=== PATIENT | female | born 1965 | race Two or more races ===

== ENCOUNTER 2017-03-26 10:15 | Emergency (ER) | payer BC ==
[2017-03-26] MEDS ORDERED: NORMAL SALINE 1000 ML 1,000 ML IV ONE (10:42)
[2017-03-26] MEDS ORDERED: FAMOTIDINE INJ/PF 20 MG/2 ML SDV IV ONE (10:42)
--- NOTE | 2017-03-26 10:43 | ER Document Report ---
ED General - General Chief Complaint: Abdominal Pain Stated Complaint: VOMITING Time Seen by Provider: 03/26/17 10:38 TRAVEL OUTSIDE OF THE [place] IN LAST 30 DAYS: No - HPI Notes: Seen approximately 2-3 days ago for paresthesias elevated blood sugars neck pain at [facility]. Started on Flexeril patient now complains of burning stomach pain. - Related Data Allergies/Adverse Reactions: iodine [Iodine] Allergy (Severe, Verified 06/07/15 20:48) Anaphylaxis Shellfish * [Shellfish] Allergy (Severe, Verified 06/07/15 20:48) Anaphylaxis hydromorphone [From Dilaudid] Allergy (Verified 03/26/17 10:21) morphine Allergy (Verified 03/26/17 10:21) Past Medical History - Social History Family History: Reviewed & Not Pertinent - Past Medical History Cardiac Medical History: Denies: Hx Coronary Artery Disease, Hx Heart Attack, Hx Hypertension Pulmonary Medical History: Denies: Hx Asthma, Hx Bronchitis, Hx COPD, Hx Pneumonia Neurological Medical History: Denies: Hx Cerebrovascular Accident, Hx Seizures Endocrine Medical History: Reports: Hx Diabetes Mellitus Type 2 Renal/ Medical History: Reports: Hx Kidney Stones - STAGHORN x 2. Denies: Hx Peritoneal Dialysis Musculoskeltal Medical History: Reports Hx Arthritis Past Surgical History: Reports: Hx Cardiac Surgery - ablation, Hx Section - x4, Hx Cholecystectomy, Hx Kidney (Renal Surgery) - Lt side x 2. Denies: Hx Hysterectomy - Immunizations Hx Diphtheria, Pertussis, Tetanus Vaccination: Yes Review of Systems - Review of Systems Gastrointestinal: Abdominal pain Physical Exam - Vital signs Vitals: Temp Pulse Resp BP Pulse Ox 98.5 F 94 22 H 154/101 H 99 03/26/17 10:19 03/26/17 10:19 03/26/17 10:19 03/26/17 10:19 03/26/17 10:19 - Cardiovascular Rhythm: Regular Heart sounds: Normal auscultation Course - Vital Signs Vital signs: Temp Pulse Resp BP Pulse Ox 98.5 F 94 22 H 154/101 H 99 03/26/17 10:19 03/26/17 10:19 03/26/17 10:19 03/26/17 10:19 03/26/17 10:19
[2017-03-26] MEDS ORDERED: ONDANSETRON HCL INJ/PF 4 MG/2 ML SDV IV ONE (10:44)
--- NOTE | 2017-03-26 10:44 | ER Document Report ---
ED Medical Screen (RME) - General Chief Complaint: Abdominal Pain Stated Complaint: VOMITING Time Seen by Provider: 03/26/17 10:38 TRAVEL OUTSIDE OF THE [place] IN LAST 30 DAYS: No - HPI Notes: 03/26/17 10:44 Burning stomach pain nausea vomiting left flank pain. Seen 2 days ago at [facility]. - Related Data Allergies/Adverse Reactions: iodine [Iodine] Allergy (Severe, Verified 06/07/15 20:48) Anaphylaxis Shellfish * [Shellfish] Allergy (Severe, Verified 06/07/15 20:48) Anaphylaxis hydromorphone [From Dilaudid] Allergy (Verified 03/26/17 10:21) morphine Allergy (Verified 03/26/17 10:21) Past Medical History - Social History Chew tobacco use (# tins/day): No Frequency of alcohol use: Occasional Drug Abuse: None - Past Medical History Cardiac Medical History: Denies: Hx Coronary Artery Disease, Hx Heart Attack, Hx Hypertension Pulmonary Medical History: Denies: Hx Asthma, Hx Bronchitis, Hx COPD, Hx Pneumonia Neurological Medical History: Denies: Hx Cerebrovascular Accident, Hx Seizures Endocrine Medical History: Reports: Hx Diabetes Mellitus Type 2 Renal/ Medical History: Reports: Hx Kidney Stones - STAGHORN x 2. Denies: Hx Peritoneal Dialysis Musculoskeltal Medical History: Reports Hx Arthritis Past Surgical History: Reports: Hx Cardiac Surgery - ablation, Hx Section - x4, Hx Cholecystectomy, Hx Kidney (Renal Surgery) - Lt side x 2. Denies: Hx Hysterectomy - Immunizations Hx Diphtheria, Pertussis, Tetanus Vaccination: Yes Review of Systems - Review of Systems Gastrointestinal: Abdominal pain, Nausea, Vomiting -: Yes All other systems reviewed and negative Physical Exam - Vital signs Vitals: Temp Pulse Resp BP Pulse Ox 98.5 F 94 22 H 154/101 H 99 03/26/17 10:19 03/26/17 10:19 03/26/17 10:03/26/17 10:03/26/17 10:19 - Respiratory Respiratory status: No respiratory distress Chest status: Nontender Breath sounds: Normal Chest palpation: Normal Course - Vital Signs Vital signs: Temp Pulse Resp BP Pulse Ox 98.5 F 94 22 H 154/101 H 99 03/26/17 10:19 03/26/17 10:19 03/26/17 10:19 03/26/17 10:19 03/26/17 10:19
[2017-03-26 11:18] LABS: ABSOLUTE BASOPHILS # (AUTO) 0.1 10^3/uL (0.0-0.2); ABSOLUTE EOSINOPHILS # (AUTO) 0.2 10^3/uL (0.0-0.6); ABSOLUTE LYMPHOCYTES (AUTO) 2.6 10^3/uL (0.5-4.7); ABSOLUTE MONOCYTES (AUTO) 0.7 10^3/uL (0.1-1.4); BASOPHILS % (AUTO) 0.6 % (0-2); EOSINOPHILS % (AUTO) 1.6 % (0-6); HEMATOCRIT 44.1 % (36.0-47.0); HEMOGLOBIN 14.7 g/dL (12.0-15.5); LYMPHOCYTES % (AUTO) 24.8 % (13-45); MEAN CORPUSCULAR HEMOGLOBIN 25.3 pg (27.0-33.4); MEAN CORPUSCULAR HGB CONC 33.4 g/dL (32.0-36.0); MEAN CORPUSCULAR VOLUME 76 fl (80-97); MONOCYTES % (AUTO) 6.7 % (3-13); RED BLOOD COUNT 5.81 10^6/uL (3.72-5.28); RED CELL DISTRIBUTION WIDTH 13.6 % (11.5-14.0); SEGMENTED NEUTROPHILS % (AUTO) 66.3 % (42-78); WHITE BLOOD COUNT 10.6 10^3/uL (4.0-10.5)
--- NOTE | 2017-03-26 11:55 | RADIOLOGY REPORT (SQ) ---
EXAM DESCRIPTION: CT LTD RENAL STONE PROTOCOL ON COMPLETED DATE/TIME: 03/26/2017 11:20 am REASON FOR STUDY: left flank COMPARISON: 01/30/2009, 09/07/2012, 08/25/2014 CT abdomen and pelvis without contrast TECHNIQUE: CT scan of the abdomen and pelvis performed without intravenous or oral contrast. Images reviewed with lung, soft tissue, and bone windows. Reconstructed coronal and sagittal MPR images revi ewed. All images stored on PACS. All CT scanners at this facility use dose modulation, iterative reconstruction, and/or weight based d osing when appropriate to reduce radiation dose to as low as reasonably achievable (ALARA). [facility]: Dose Right [facility]: CareDose [facility]: Dose Right [facility]: Teradose 4D [facility]: Smart MaxLinear RADIATION DOSE: Up-to-date CT equipment and radiation dose reduction techniques were employed. CTDIv ol: 10.5 mGy. DLP: 539 mGy-cm.mGy. LIMITATIONS: None. FINDINGS: LOWER CHEST: No significant findings. No nodules or infiltrates. NON-CONTRASTED LIVER, SPLEEN, ADRENALS: Evaluation limited by lack of IV contrast. No identified sign ificant masses. PANCREAS: No masses. No peripancreatic inflammatory changes. GALLBLADDER: Surgically absent RIGHT KIDNEY AND URETER: No suspicious masses. Assessment limited by lack of IV contrast. No signif icant calcifications. No hydronephrosis or hydroureter. LEFT KIDNEY AND URETER: No suspicious masses. Assessment limited by lack of IV contrast. There are tiny left mid and lower pole intrarenal nonobstructive stones. No left ureteral calculi. No hydron ephrosis or hydroureter. AORTA AND RETROPERITONEUM: No aneurysm. No retroperitoneal masses or adenopathy. BOWEL AND PERITONEAL CAVITY: No obvious masses or inflammatory changes. No free fluid. APPENDIX: Normal. PELVIS, BLADDER, AND ABDOMINAL WALL:No abnormal masses. No free fluid. Bladder normal. Normal size f emale pelvic organs BONES: Vacuum phenomenon bilateral SI joints. Lower lumbar and facet arthropathy. OTHER: No other significant finding. IMPRESSION: Left-sided intrarenal nonobstructive calculi. COMMENT: Quality ID # [id number]: Final reports with documentation of one or more dose reduction techniques (e.g., Automated exposure control, adjustment of the mA and/or kV according to patient size, use of iterative reconstruction technique) TECHNICAL DOCUMENTATION: JOB ID: [id number]- All Rights Reserved
[2017-03-26 12:04] LABS: APPEARANCE,URINE CLOUDY; BILIRUBIN,URINE NEGATIVE (NEGATIVE); GLUCOSE, URINE >=500 mg/dL (NEGATIVE); KETONES,URINE NEGATIVE (NEGATIVE); LEUKOCYTE ESTERASE,URINE SMALL (NEGATIVE); NITRITE,URINE NEGATIVE (NEGATIVE); PROTEIN,URINE NEGATIVE (NEGATIVE); URINE SPECIFIC GRAVITY 1.023; UROBILINOGEN,URINE NEGATIVE mg/dL (<2.0)
[2017-03-26 12:16] LABS: ALANINE AMINOTRANSFERASE 40 U/L (9-52); ALBUMIN 4.3 g/dL (3.5-5.0); ALKALINE PHOSPHATASE 92 U/L (38-126); ANION GAP 16 (5-19); ASPARTATE AMINO TRANSFERASE 18 U/L (14-36); BILIRUBIN,DIRECT 0.4 mg/dL (0.0-0.4); BILIRUBIN,TOTAL 1.2 mg/dL (0.2-1.3); BLOOD UREA NITROGEN 30 mg/dL (7-20); CALCIUM 9.8 mg/dL (8.4-10.2); CARBON DIOXIDE 25 mmol/L (22-30); CHLORIDE 100 mmol/L (98-107); GLUCOSE 288 mg/dL (75-110); LIPASE 382.4 U/L (23-300); POTASSIUM 4.2 mmol/L (3.6-5.0); SODIUM 140.6 mmol/L (137-145)
--- NOTE | 2017-03-26 12:51 | ER Document Report ---
ED General - General Chief Complaint: Abdominal Pain Stated Complaint: VOMITING Time Seen by Provider: 03/26/17 10:38 Mode of Arrival: Ambulatory Information source: Patient Notes: 51-year-old female presents with complaints of epigastric abdominal pain similar to her previous pains. Patient denies any fevers or chills admits to mild nausea with it. Patient notes that she was switched on her diabetes medication by her primary care physician 4 days ago and since then her blood sugar has been elevated and her vision has been blurry. Patient denies any fevers or chills patient notes that she is also had chronic neck pain which she has been told is secondary to arthritis in second cervical region. Patient denies any chest pain TRAVEL OUTSIDE OF THE [place] IN LAST 30 DAYS: No - HPI Onset: Other Onset/Duration: Intermittent Quality of pain: Sharp Severity: Mild Pain Level: 1 Associated symptoms: Nausea, Other Exacerbated by: Denies Relieved by: Denies Similar symptoms previously: Yes Recently seen / treated by doctor: Yes - Related Data Allergies/Adverse Reactions: iodine [Iodine] Allergy (Severe, Verified 06/07/15 20:48) Anaphylaxis Shellfish * [Shellfish] Allergy (Severe, Verified 06/07/15 20:48) Anaphylaxis hydromorphone [From Dilaudid] Allergy (Verified 03/26/17 10:21) morphine Allergy (Verified 03/26/17 10:21) Past Medical History - Social History Smoking Status: Current Every Day Smoker Cigarette use (# per day): Yes Chew tobacco use (# tins/day): No Smoking Education Provided: No Frequency of alcohol use: Occasional Drug Abuse: None Family History: Reviewed & Not Pertinent - Past Medical History Cardiac Medical History: Denies: Hx Coronary Artery Disease, Hx Heart Attack, Hx Hypertension Pulmonary Medical History: Denies: Hx Asthma, Hx Bronchitis, Hx COPD, Hx Pneumonia Neurological Medical History: Denies: Hx Cerebrovascular Accident, Hx Seizures Endocrine Medical History: Reports: Hx Diabetes Mellitus Type 2 Renal/ Medical History: Reports: Hx Kidney Stones - STAGHORN x 2. Denies: Hx Peritoneal Dialysis Musculoskeltal Medical History: Reports Hx Arthritis Past Surgical History: Reports: Hx Cardiac Surgery - ablation, Hx Section - x4, Hx Cholecystectomy, Hx Kidney (Renal Surgery) - Lt side x 2. Denies: Hx Hysterectomy - Immunizations Hx Diphtheria, Pertussis, Tetanus Vaccination: Yes Review of Systems - Review of Systems Notes: REVIEW OF SYSTEMS: CONSTITUTIONAL : Denies fever, chills, or sweats. Denies recent illness. EENT: Denies eye, ear, throat, or mouth pain or symptoms. Denies nasal or sinus congestion or discharge. Denies throat, tongue, or mouth swelling or difficulty swallowing. CARDIOVASCULAR: Denies chest pain. Denies palpitations or racing or irregular heart beat. Denies ankle edema. RESPIRATORY: Denies cough, cold, or chest congestion. Denies shortness of breath, difficulty breathing, or wheezing. GASTROINTESTINAL: Admits to epigastric pain GENITOURINARY: Denies difficulty urinating, painful urination, burning, frequency, blood in urine, or discharge. FEMALE GENITOURINARY: Denies vaginal bleeding, heavy or abnormal periods, irregular periods. Denies vaginal discharge or odor. MUSCULOSKELETAL: Admits to cervical neck pain SKIN: Denies rash, lesions or sores. HEMATOLOGIC : Denies easy bruising or bleeding. LYMPHATIC: Denies swollen, enlarged glands. NEUROLOGICAL: Denies confusion or altered mental status. Denies passing out or loss of consciousness. Denies dizziness or lightheadedness. Denies headache. Denies weakness or paralysis or loss of use of either side. Denies problems with gait or speech. Denies sensory loss, numbness, or tingling. Denies seizures. PSYCHIATRIC: Denies anxiety or stress. Denies depression, suicidal ideation, or homicidal ideation. ALL OTHER SYSTEMS REVIEWED AND NEGATIVE. PHYSICAL EXAMINATION: GENERAL: Well-appearing, well-nourished and in no acute distress. HEAD: Atraumatic, normocephalic. EYES: Pupils equal round and reactive to light, extraocular movements intact, conjunctiva are normal. ENT: Nares patent, oropharynx clear without exudates. Moist mucous membranes. NECK: Normal range of motion, supple without lymphadenopathy LUNGS: Breath sounds clear to auscultation bilaterally and equal. No wheezes rales or rhonchi. HEART: Regular rate and rhythm without murmurs ABDOMEN: Soft, minimally tender in epigastric region no rebound or guarding Female : deferred Musculoskeletal: Normal range of motion, no pitting or edema. No cyanosis. NEUROLOGICAL: Cranial nerves grossly intact. Normal speech, normal gait. Normal sensory, motor exams PSYCH: Normal mood, normal affect. SKIN: Warm, Dry, normal turgor, no rashes or lesions noted. Dictation was performed using imedo voice recognition software Physical Exam - Vital signs Vitals: Temp Pulse Resp BP Pulse Ox 98.5 F 94 22 H 154/101 H 99 03/26/17 10:19 03/26/17 10:19 03/26/17 10:03/26/17 10:03/26/17 10:19 Course - Re-evaluation Re-evalutation: 03/26/17 13:48 Lab work noted no significant abnormality mild elevation of lipase was noted however the patient does not appear to have any signs of pancreatitis otherwise. She was treated for her gastric reflux as well as her neuralgia. Patient has been given very strict return precautions regarding follow-up and return and to speak with her primary care physician regarding her medications which she believes is causing all the symptoms Patient blood sugar is noted to be elevated today therefore I hope to change medication will get it under control After performing a Medical Screening Examination, I estimate there is LOW risk for ACUTE APPENDICITIS, BOWEL OBSTRUCTION, ACUTE CHOLECYSTITIS, PERFORATED DIVERTICULITIS, INCARCERATED HERNIA, PANCREATITIS, PELVIC INFLAMMATORY DISEASE, PERFORATED ULCER, ECTOPIC , or TUBO-OVARIAN ABSCESS, thus I consider the discharge disposition reasonable. Also, there is no evidence or peritonitis , sepsis, or toxicity. I have reevaluated this patient multiple times and no significant life threatening changes are noted. The patient and I have discussed the diagnosis and risks, and we agree with discharging home with close follow-up with the understanding that symptoms and presentations can change. We also discussed returning to the Emergency Department immediately if new or worsening symptoms occur. We have discussed the symptoms which are most concerning (e.g., bloody stool, fever, changing or worsening pain, vomiting) that necessitate immediate return. - Vital Signs Vital signs: Temp Pulse Resp BP Pulse Ox 98.5 F 94 18 97/81 L 97 03/26/17 13:01 03/26/17 10:03/26/17 13:01 03/26/17 13:01 03/26/17 13:01 - Laboratory Result Diagrams: 03/26/17 11:00 03/26/17 11:55 Laboratory results interpreted by me: 03/26/17 03/26/17 03/26/17 11:00 11:00 11:55 WBC 10.6 H RBC 5.81 H MCV 76 L MCH 25.3 L BUN 30 H Creatinine 1.40 H Est GFR ( Amer) 48 L Est GFR (Non-Af Amer) 39 L Glucose 288 H Lipase 382.4 H Urine Glucose (UA) >=500 H Ur Leukocyte Esterase SMALL H - Diagnostic Test Radiology reviewed: Image reviewed, Reports reviewed Discharge - Discharge Clinical Impression: Epigastric abdominal pain, Neck pain, Hyperglycemia Condition: Stable Disposition: HOME, SELF-CARE Instructions: Abdominal Pain ([facility]) Prescriptions: Famotidine [Pepcid 20 mg Tablet] 20 mg PO DAILY #30 tablet Gabapentin 300 mg PO BID #30 capsule Forms: Return to Work Referrals: NISH STOKES MD [ACTIVE STAFF] - Follow up as needed
[2017-03-26 13:14] VITALS: BP 97/81
== END 2017-03-26 13:10 | disposition home or self-care (01) ==
LOC: ER 10:15
DX: E11.65 Type 2 diabetes mellitus with hyperglycemia (principal); R10.13 Epigastric pain; M54.2 Cervicalgia; R11.10 Vomiting, unspecified; F17.210 Nicotine dependence, cigarettes, uncomplicated; Z88.6 Allergy status to analgesic agent; Z91.013 Allergy to seafood; Z90.49 Acquired absence of other specified parts of digestive tract
CPT/HCPCS: 99284; 96361; 96374; 96375; 36415; 83690; 85025; 80053; 81001; 83605; 76380; J2405; J7030; S0028

== ENCOUNTER → 2017-05-28 | Outpatient (CLI) | payer BC ==
--- NOTE | 2017-05-28 09:51 | RADIOLOGY REPORT (SQ) ---
EXAM DESCRIPTION: CERV SP 3 VIEW OR LESS COMPLETED DATE/TIME: 05/28/2017 7:53 am REASON FOR STUDY: CERVICAL RADICULAR PAIN M54.12 RADICULOPATHY, CERVICAL REGION COMPARISON: None. NUMBER OF VIEWS: Two views TECHNIQUE: Lateral flexion and lateral extension cervical spine radiographic images LIMITATIONS: None. FINDINGS: MINERALIZATION: Normal. ALIGNMENT: Anatomic. No instability on flexion/extension VERTEBRAE: Vertebral bodies of normal height. DISCS: There is moderate disc space loss of height with mild anterior osteophyte formation at C5-6. Mild disc space loss of height with anterior osteophyte formation at C6-7 HARDWARE: None in the spine. SOFT TISSUES: No masses or calcifications. Lung apices clear. OTHER: No other significant finding. IMPRESSION: Degenerative disc changes at C5-6 and C6-7. No instability on flexion/extension TECHNICAL DOCUMENTATION: JOB ID: [id number] [email or web address]- All Rights Reserved
== END ==
LOC: RAD 07:18
PROVIDERS: ATTEND Nurse Practitioner
DX: M54.12 Radiculopathy, cervical region (principal); M47.892 Other spondylosis, cervical region
CPT/HCPCS: 72040

== ENCOUNTER → 2017-07-07 | Outpatient (CLI) | payer BC ==
--- NOTE | 2017-07-07 08:09 | RADIOLOGY REPORT (SQ) ---
EXAM DESCRIPTION: CERV SP 3 VIEW OR LESS COMPLETED DATE/TIME: 07/07/2017 7:26 am REASON FOR STUDY: CERVICAL RADICULAR PAIN M54.12 RADICULOPATHY, CERVICAL REGION COMPARISON: 05/28/2017. NUMBER OF VIEWS: Three views. TECHNIQUE: Neutral lateral, flexion, and extension lateral views. LIMITATIONS: None. FINDINGS: MINERALIZATION: Normal. ALIGNMENT: Minimal degenerative anterolisthesis of C4 on C5. VERTEBRAE: Cervical spondylosis at C4-7. DISCS: Disc space narrowing prominent at C5-7 and to a lesser degree at C4-5. HARDWARE: None in the spine. SOFT TISSUES: No masses or calcifications. Lung apices clear. OTHER: No other significant finding. IMPRESSION: Multilevel cervical spondylosis with degenerative disc disease prominent at C5-7. TECHNICAL DOCUMENTATION: JOB ID: [id number] [employer]- All Rights Reserved
--- NOTE | 2017-07-07 08:54 | RADIOLOGY REPORT (SQ) ---
EXAM DESCRIPTION: MRI CERVICAL SPINE WITHOUT; EMPLOYEE COMPLETED DATE/TIME: 07/07/2017 7:54 am; 07/07/2017 7:26 am REASON FOR STUDY: CERVICAL RADICULAR PAIN M54.12 RADICULOPATHY, CERVICAL REGION COMPARISON: None. TECHNIQUE: Sagittal and Axial imaging includes T1, T2, STIR and gradient echo sequences. LIMITATIONS: Patient motion. FINDINGS: ALIGNMENT: Reversal of lordotic curve. VERTEBRAE: Intact. BONE MARROW: Normal. No marrow replacement or reactive changes. DISCS: Desiccation multiple levels. HARDWARE: None in the spine. CORD AND BASE OF BRAIN: Normal in size and signal intensity. SOFT TISSUES: No soft tissue masses. C1-C2: No significant spinal stenosis. C2-C3: No significant spinal stenosis or exit foraminal stenosis. C3-C4: Mild spinal stenosis due to disc osteophyte complex. Mild right and moderate left neural fora candy narrowing. C4-C5: Mild -moderate spinal stenosis due to disc osteophyte complex. Moderate neural foraminal narr owing bilaterally. C5-C6: Moderate spinal stenosis. Severe neural foraminal narrowing bilaterally. C6-C7: Mild spinal stenosis. Moderate right and severe left neural foraminal narrowing. C7-T1: No significant spinal stenosis or exit foraminal stenosis. UPPER THORACIC: Incompletely imaged. No significant spinal stenosis or exit foraminal stenosis. OTHER: No other significant finding. IMPRESSION: Spinal stenosis at multiple levels, most severe at C5- 6. Neural foraminal stenosis. TECHNICAL DOCUMENTATION: JOB ID: [id number] [employer]- All Rights Reserved
== END ==
LOC: RAD 07:04
PROVIDERS: ATTEND Nurse Practitioner
DX: M54.12 Radiculopathy, cervical region (principal)
CPT/HCPCS: 72040; 72141

== ENCOUNTER 2017-11-29 04:33 | Emergency (ER) | payer BC ==
[2017-11-29 04:40] VITALS: BP 162/80
--- NOTE | 2017-11-29 04:55 | ER Document Report ---
HPI - HPI Patient complains to provider of: Left shoulder pain Pain Level: 4 Context: Patient is a 52-year-old female comes emergency department for chief complaint of left shoulder pain. She states that on she accidentally injured her arm by swinging it around quickly, she denies any heavy lifting maneuver or impact injury. She states she had a sharp pain and since then has had soreness , pain with movement, and this has been getting worse instead of better. She is taking diclofenac and Flexeril. She denies history of the same. She denies any other complaints. - REPRODUCTIVE Reproductive: DENIES: : Past Medical History - General Information source: Patient - Social History Smoking Status: Never Smoker Frequency of alcohol use: None Drug Abuse: None Lives with: Family Family History: Reviewed & Not Pertinent - Past Medical History Cardiac Medical History: Denies: Hx Coronary Artery Disease, Hx Heart Attack, Hx Hypertension Pulmonary Medical History: Denies: Hx Asthma, Hx Bronchitis, Hx COPD, Hx Pneumonia Neurological Medical History: Denies: Hx Cerebrovascular Accident, Hx Seizures Endocrine Medical History: Reports: Hx Diabetes Mellitus Type 2 Renal/ Medical History: Reports: Hx Kidney Stones - STAGHORN x 2. Denies: Hx Peritoneal Dialysis Musculoskeltal Medical History: Reports Hx Arthritis Past Surgical History: Reports: Hx Cardiac Surgery - ablation, Hx Section - x4, Hx Cholecystectomy, Hx Kidney (Renal Surgery) - Lt side x 2. Denies: Hx Hysterectomy - Immunizations Hx Diphtheria, Pertussis, Tetanus Vaccination: Yes Vertical Provider Document - CONSTITUTIONAL General Appearance: WD/WN, No Apparent Distress - INFECTION CONTROL TRAVEL OUTSIDE OF THE [place] IN LAST 30 DAYS: No - HEENT HEENT: Atraumatic, Normocephalic - NECK Neck: Normal Inspection - Normal range of motion the neck, no midline tenderness - RESPIRATORY Respiratory: Breath Sounds Normal, No Respiratory Distress - CARDIOVASCULAR Cardiovascular: Regular Rate, Regular Rhythm - GI/ABDOMEN Gastrointestinal: Abdomen Soft, Abdomen Non-Tender - BACK Back: negative: Normal Inspection - Tenderness over the left trapezius distribution, no midline tenderness of the spine, no saddle anesthesia, normal back exam otherwise - MUSCULOSKELETAL/EXTREMETIES Musculoskeletal/Extremeties: Tender - Tender over the left shoulder posteriorly at the rotator cuff, no supraspinatus tenderness. Pain with range of motion although she can still perform full range of motion. Negative empty cup test and Speed's test. Full range of motion at the elbow, wrist, normal distal neurovascular exam, normal strength. - NEURO Level of Consciousness: Awake, Alert, Appropriate Motor/Sensory: No Motor Deficit, No Sensory Deficit Course - Re-evaluation Re-evalutation: X-ray imaging showing arthritis, no acute findings. Examination consistent with rotator cuff injury. Patient states she cannot sleep because of the pain, she has what appears to be muscle spasm over the left trapezius as well. Patient already on anti-inflammatories, declines sling, need to work release, discussed with patient, will provide with diazepam for the muscle spasm, she Josh has good orthopedic follow-up and sees Dr. Bonilla. Discussed recommendations, follow-up, return precautions, patient states understanding and agreement. - Vital Signs Vital signs: Temp Pulse Resp BP Pulse Ox 98.0 F 79 20 162/80 H 98 11/29/17 04:38 11/29/17 04:38 11/29/17 04:38 11/29/17 04:38 11/29/17 04:38 Discharge - Discharge Clinical Impression: Left shoulder pain Qualifiers: Chronicity: acute Qualified Code(s): M25.512 - Pain in left shoulder Condition: Stable Disposition: HOME, SELF-CARE Additional Instructions: The x-ray shows some arthritis but no other concerning findings. Your examination is consistent with a partial tear of your rotator cuff. This sometimes heals with time, sometimes needs orthopedic management. Take medication as prescribed, continue diclofenac, apply heat to the shoulder, perform gentle range of motion, and rest the shoulder. Avoid lifting, twisting , if possible until symptoms resolve. Return for any concerning symptoms including severe swelling or pain. Prescriptions: Diazepam [Valium 5 mg Tablet] 1 - 2 tab PO TID PRN #20 tablet PRN Reason: Forms: Return to Work Referrals: DOROTEO BONILLA MD [ACTIVE STAFF] - Follow up in 1 week
--- NOTE | 2017-11-29 05:21 | RADIOLOGY REPORT (SQ) ---
EXAM DESCRIPTION: XR SHOULDER 2 OR MORE VIEWS COMPLETED DATE/TME: 11/29/2017 04:53 CLINICAL HISTORY: 52 years Female, injury, pain COMPARISON: None. Findings: Os acromiale. Atherosclerosis. Bones, joints, and soft tissues of the XR LEFT SHOULDER 3 VIEWS appear otherwise intact. IMPRESSION: No acute findings.
[2017-11-29] MEDS ORDERED: DIAZEPAM INJ 10 MG/2 ML DISP.SYRIN IM ONE (05:23)
== END 2017-11-29 05:39 | disposition home or self-care (01) ==
LOC: ER 04:33
DX: M25.512 Pain in left shoulder (principal); X50.3XXA Overexertion from repetitive movements, initial encounter; Z79.899 Other long term (current) drug therapy; E11.9 Type 2 diabetes mellitus without complications
CPT/HCPCS: 99283; 96372; 73030; J3360

== ENCOUNTER → 2017-12-16 | Outpatient (CLI) | payer BC ==
--- NOTE | 2017-12-17 08:26 | RADIOLOGY REPORT (SQ) ---
EXAM DESCRIPTION: MRI LT UPPER JOINT WITHOUT COMPLETED DATE/TIME: 12/16/2017 6:46 pm REASON FOR STUDY: M25.512 PAIN IN LEFT SHOULDER M25.512 PAIN IN LEFT SHOULDER COMPARISON: Plain radiograph TECHNIQUE: Left shoulder images acquired and stored on PACS. Multiplanar imaging to include fat sens itive sequences such as T1, water sensitive sequences such as FST2/STIR, cartilage sensitive sequence s such as FSPD/gradient-echo sequences. LIMITATIONS: None. FINDINGS: BONE MARROW AND CORTEX: No worrisome bone lesions or marrow replacement. No occult fractur es. JOINT OR BURSAL EFFUSION: No significant joint or bursal fluid. No suggestion of loose bodies. GLENO-HUMERAL ARTICULATION: Normal articulation. No subluxation. No cystic change. No osteophytes or cartilage loss. ACROMION AND AC JOINT: Os acromiale. Type 2 acromion. No down-sloping or distal spur. Sub-acromial space maintained. No significant AC joint arthropathy. ROTATOR CUFF AND INTERVAL: Thickening and heterogeneous signal of the distal supraspinatus. There is a small rim rent tear at the insertion. Focal fluid collection in the infraspinatus without tear. No rotator interval tear. No rotator interval thickening to suggest adhesive capsulitis. LABRUM AND BICEPS LABRAL COMPLEX: Thickening of the biceps anchor and proximal tendon indicating te ndinopathy. No abbi tear. The labrum is intact. REMAINDER OF LABRUM AND IGHL : No gross tear or paralabral cyst formation. Labral evaluation is less than optimal without joint distention. No thickening of IGHL to suggest adhesive capsulitis. PERIARTICULAR AND ADJACENT SOFT TISSUES: No masses or abnormal nodes. OTHER: No other significant finding. IMPRESSION: Tendinopathy and small rim rent tear of the supraspinatus. No full-thickness tear. Small fluid collection in the infraspinatus. Possibly posttraumatic. TECHNICAL DOCUMENTATION: JOB ID: [id number] [employer]- All Rights Reserved Reading location - IP/workstation name: [id number]
== END ==
LOC: RAD 18:54
PROVIDERS: ATTEND Orthopaedic Surgery
DX: M25.512 Pain in left shoulder (principal); M75.112 Incomplete rotator cuff tear or rupture of left shoulder, not specified as traumatic

== ENCOUNTER 2018-07-15 21:40 | Emergency (ER) | payer SELFPAY ==
[2018-07-15 21:57] VITALS: BP 137/83
[2018-07-15] MEDS ORDERED: ASPIRIN 81 MG TABLET, CHEWABLE PO ONE (22:25)
--- NOTE | 2018-07-15 22:27 | ER Document Report ---
ED Medical Screen (RME) - General Chief Complaint: High Blood Sugar Stated Complaint: BLOOD SUGAR PROBLEMS Time Seen by Provider: 07/15/18 22:20 Primary Care Provider: DOROTEO BONILLA MD [Primary Care Provider] - Follow up as needed Notes: 52-year-old -Malag[place] female with multiple medical comorbidities comes in tonight with multiple complaints. Chiefly patient is having some pain in her chest. She has a history of PA and CABG in the past. Apparently she has not had the money to afford a lot of her medications. Feels like her blood sugars also high. She is tearful about multiple stressors in her life and has also been having suicidal ideation with a plan to ingest a whole bunch of pills. I have treated and performed a rapid initial assessment of this patient. A comprehensive ED assessment and evaluation of the patient, analysis of test results and completion of medical decision making process will be conducted by additional ED providers. PHYSICAL EXAMINATION: GENERAL: Tearful, no acute distress LUNGS: Breath sounds clear to auscultation bilaterally and equal. No wheezes rales or rhonchi. HEART: Regular rate and rhythm without murmurs, rubs, gallops. ABDOMEN: Soft, nondistended abdomen. No guarding, no rebound. Normal bowel sounds present. No CVA tenderness bilaterally. + mild epigastric tenderness (cannot elicit thorough abd exam w/o table, however). Extremities: No cyanosis, clubbing, or edema b/l. NEUROLOGICAL: Normal speech, normal gait. PSYCH: Depressed TRAVEL OUTSIDE OF THE [place] IN LAST 30 DAYS: No - Related Data Allergies/Adverse Reactions: iodine [Iodine] Allergy (Severe, Verified 06/07/15 20:48) Anaphylaxis Shellfish * [Shellfish] Allergy (Severe, Verified 06/07/15 20:48) Anaphylaxis hydromorphone [From Dilaudid] Allergy (Verified 03/26/17 10:21) morphine Allergy (Verified 03/26/17 10:21) Past Medical History - Past Medical History Cardiac Medical History: Denies: Hx Coronary Artery Disease, Hx Heart Attack, Hx Hypertension Pulmonary Medical History: Denies: Hx Asthma, Hx Bronchitis, Hx COPD, Hx Pneumonia Neurological Medical History: Denies: Hx Cerebrovascular Accident, Hx Seizures Endocrine Medical History: Reports: Hx Diabetes Mellitus Type 2 Renal/ Medical History: Reports: Hx Kidney Stones - STAGHORN x 2. Denies: Hx Peritoneal Dialysis Musculoskeltal Medical History: Reports Hx Arthritis Past Surgical History: Reports: Hx Cardiac Surgery - ablation, Hx Section - x4, Hx Cholecystectomy, Hx Kidney (Renal Surgery) - Lt side x 2. Denies: Hx Hysterectomy - Immunizations Hx Diphtheria, Pertussis, Tetanus Vaccination: Yes Physical Exam - Vital signs Vitals: Temp Pulse Resp BP Pulse Ox 99.2 F 99 16 137/83 H 98 07/15/18 21:55 07/15/18 21:55 07/15/18 21:55 07/15/18 21:55 07/15/18 21:55 Course - Vital Signs Vital signs: Temp Pulse Resp BP Pulse Ox 99.2 F 99 16 137/83 H 98 07/15/18 21:55 07/15/18 21:55 07/15/18 21:55 07/15/18 21:55 07/15/18 21:55 Doctor's Discharge - Discharge Referrals: DOROTEO BONILLA MD [Primary Care Provider] - Follow up as needed
--- NOTE | 2018-07-15 22:46 | RADIOLOGY REPORT (SQ) ---
EXAM DESCRIPTION: XR CHEST 2 VIEWS COMPLETED DATE/TME: 07/15/2018 22:23 CLINICAL HISTORY: 52 years, Female, CHEST PAIN COMPARISON: 06/07/2015 chest NUMBER OF VIEWS: 2 TECHNIQUE: Frontal and lateral views of the chest LIMITATIONS: None. FINDINGS: Heart size is normal. Median sternotomy wires. Lungs are clear. No pneumothorax IMPRESSION: No acute cardiopulmonary process copyright 2010 [employer]- All Rights Reserved
== END 2018-07-16 07:05 | disposition left against medical advice (07) ==
LOC: ER 21:40
DX: E11.65 Type 2 diabetes mellitus with hyperglycemia (principal); Z87.442 Personal history of urinary calculi; Z90.49 Acquired absence of other specified parts of digestive tract; Z88.6 Allergy status to analgesic agent; Z91.013 Allergy to seafood; I25.2 Old myocardial infarction; Z95.1 Presence of aortocoronary bypass graft
CPT/HCPCS: 71046; 99281

== ENCOUNTER 2018-08-19 21:27 | Emergency (ER) | payer OTHER ==
[2018-08-19] MEDS ORDERED: NORMAL SALINE 1000 ML 1,000 ML IV ONE (21:30)
--- NOTE | 2018-08-19 21:41 | ER Document Report ---
ED Medical Screen (RME) - General Chief Complaint: High Blood Sugar Stated Complaint: BLOOD SUGAR ISSUE Time Seen by Provider: 08/19/18 21:39 Primary Care Provider: DOROTEO BONILLA MD [Primary Care Provider] - Follow up as needed Mode of Arrival: Ambulatory Information source: Patient Notes: Patient presents to the emergency department with reports of high blood sugar, 507. Reports she has been feeling sick for a week dizzy and having a headache. Patient is a diabetic. Recent cardiac surgery. I have greeted and performed a rapid initial assessment of this patient. A comprehensive ED assessment and evaluation of the patient, analysis of test results and completion of the medical decision making process will be conducted by additional ED providers. TRAVEL OUTSIDE OF THE [place] IN LAST 30 DAYS: No - Related Data Allergies/Adverse Reactions: iodine [Iodine] Allergy (Severe, Verified 08/19/18 21:28) Anaphylaxis Shellfish * [Shellfish] Allergy (Severe, Verified 08/19/18 21:28) Anaphylaxis hydromorphone [From Dilaudid] Allergy (Verified 08/19/18 21:28) morphine Allergy (Verified 08/19/18 21:28) Past Medical History - Past Medical History Cardiac Medical History: Denies: Hx Coronary Artery Disease, Hx Heart Attack, Hx Hypertension Pulmonary Medical History: Denies: Hx Asthma, Hx Bronchitis, Hx COPD, Hx Pneumonia Neurological Medical History: Denies: Hx Cerebrovascular Accident, Hx Seizures Endocrine Medical History: Reports: Hx Diabetes Mellitus Type 2 Renal/ Medical History: Reports: Hx Kidney Stones - STAGHORN x 2. Denies: Hx Peritoneal Dialysis Musculoskeltal Medical History: Reports Hx Arthritis Past Surgical History: Reports: Hx Cardiac Surgery - ablation, Hx Section - x4, Hx Cholecystectomy, Hx Kidney (Renal Surgery) - Lt side x 2. Denies: Hx Hysterectomy - Immunizations Hx Diphtheria, Pertussis, Tetanus Vaccination: Yes Physical Exam - Vital signs Vitals: Temp Pulse Resp BP Pulse Ox 98.0 F 98 18 133/97 H 96 08/19/18 21:32 08/19/18 21:32 08/19/18 21:32 08/19/18 21:32 08/19/18 21:32 Course - Vital Signs Vital signs: Temp Pulse Resp BP Pulse Ox 98.0 F 98 18 133/97 H 96 08/19/18 21:32 08/19/18 21:32 08/19/18 21:32 08/19/18 21:32 08/19/18 21:32 Doctor's Discharge - Discharge Referrals: DOROTEO BONILLA MD [Primary Care Provider] - Follow up as needed
[2018-08-19 23:40] LABS: ABSOLUTE BASOPHILS # (AUTO) 0.1 10^3/uL (0.0-0.2); ABSOLUTE EOSINOPHILS # (AUTO) 0.1 10^3/uL (0.0-0.6); ABSOLUTE LYMPHOCYTES (AUTO) 1.6 10^3/uL (0.5-4.7); ABSOLUTE MONOCYTES (AUTO) 0.4 10^3/uL (0.1-1.4); ABSOLUTE NEUT (AUTO) 7.1 10^3/uL (1.7-8.2); BASOPHILS % (AUTO) 0.8 % (0-2); EOSINOPHILS % (AUTO) 1.5 % (0-6); HEMATOCRIT 43.6 % (36.0-47.0); HEMOGLOBIN 14.7 g/dL (12.0-15.5); LYMPHOCYTES % (AUTO) 17.6 % (13-45); MEAN CORPUSCULAR HEMOGLOBIN 25.1 pg (27.0-33.4); MEAN CORPUSCULAR HGB CONC 33.7 g/dL (32.0-36.0); MEAN CORPUSCULAR VOLUME 75 fl (80-97); MONOCYTES % (AUTO) 4.7 % (3-13); PLATELET COUNT 281 10^3/uL (150-450); RED BLOOD COUNT 5.85 10^6/uL (3.72-5.28); RED CELL DISTRIBUTION WIDTH 13.6 % (11.5-14.0); SEGMENTED NEUTROPHILS % (AUTO) 75.4 % (42-78); TOTAL CELLS COUNTED % (AUTO) 100 %; VENOUS BLOOD BASE EXCESS 3.1 mmol/L; VENOUS BLOOD HCO3 29.5 mmol/L (20-32); VENOUS BLOOD PCO2 51.3 mmHg (35-63); VENOUS BLOOD PH 7.38 (7.30-7.42); WHITE BLOOD COUNT 9.3 10^3/uL (4.0-10.5)
[2018-08-19 23:52] LABS: APPEARANCE,URINE CLOUDY; BILIRUBIN,URINE NEGATIVE (NEGATIVE); COLOR,URINE YELLOW; GLUCOSE, URINE >=500 mg/dL (NEGATIVE); KETONES,URINE NEGATIVE (NEGATIVE); LEUKOCYTE ESTERASE,URINE TRACE (NEGATIVE); NITRITE,URINE NEGATIVE (NEGATIVE); PROTEIN,URINE NEGATIVE (NEGATIVE); URINE SPECIFIC GRAVITY 1.035; UROBILINOGEN,URINE NEGATIVE mg/dL (<2.0)
[2018-08-19 23:59] LABS: ALANINE AMINOTRANSFERASE 30 U/L (9-52); ALBUMIN 4.6 g/dL (3.5-5.0); ALKALINE PHOSPHATASE 142 U/L (38-126); ANION GAP 15 (5-19); ASPARTATE AMINO TRANSFERASE 34 U/L (14-36); BILIRUBIN,DIRECT 0.2 mg/dL (0.0-0.4); BILIRUBIN,TOTAL 0.6 mg/dL (0.2-1.3); BLOOD UREA NITROGEN 16 mg/dL (7-20); CALCIUM 9.7 mg/dL (8.4-10.2); CARBON DIOXIDE 26 mmol/L (22-30); CHLORIDE 95 mmol/L (98-107); GLUCOSE 278 mg/dL (75-110); POTASSIUM 3.9 mmol/L (3.6-5.0); SODIUM 136.2 mmol/L (137-145); TOTAL PROTEIN 7.9 g/dL (6.3-8.2)
--- NOTE | 2018-08-20 03:05 | ER Document Report ---
ED General - General Chief Complaint: High Blood Sugar Stated Complaint: BLOOD SUGAR ISSUE Time Seen by Provider: 08/19/18 21:39 Primary Care Provider: ALYSA KAISER MD [ACTIVE STAFF] - Follow up in 3-5 days Mode of Arrival: Ambulatory Notes: Patient is a very pleasant 52-year-old female presents with complaint of difficulty controlling her blood sugar. She says that she has been on metformin but her kidney function is not good and therefore it took her off metformin. She is recently been placed on Januvia and one other medication that she cannot remember the name. She says since then her blood sugars have been up and down and when her blood sugars get high she gets a headache and blurred vision and does not feel well. She says that she lost her insurance and therefore she is limited in what she can take and afford for control of her blood sugar. She did have previous open heart surgery and says this was in the fall for the next year. No chest pain. No fevers. No recent infections. No other complaints at this time. Primary care doctor is Dr. Kaiser. TRAVEL OUTSIDE OF THE [place] IN LAST 30 DAYS: No - Related Data Allergies/Adverse Reactions: iodine [Iodine] Allergy (Severe, Verified 08/19/18 21:28) Anaphylaxis Shellfish * [Shellfish] Allergy (Severe, Verified 08/19/18 21:28) Anaphylaxis hydromorphone [From Dilaudid] Allergy (Verified 08/19/18 21:28) morphine Allergy (Verified 08/19/18 21:28) Past Medical History - General Information source: Patient - Social History Smoking Status: Unknown if Ever Smoked Frequency of alcohol use: None Drug Abuse: None Family History: Reviewed & Not Pertinent - Past Medical History Cardiac Medical History: Denies: Hx Coronary Artery Disease, Hx Heart Attack, Hx Hypertension Pulmonary Medical History: Denies: Hx Asthma, Hx Bronchitis, Hx COPD, Hx Pneumonia Neurological Medical History: Denies: Hx Cerebrovascular Accident, Hx Seizures Endocrine Medical History: Reports: Hx Diabetes Mellitus Type 2 Renal/ Medical History: Reports: Hx Kidney Stones - STAGHORN x 2. Denies: Hx Peritoneal Dialysis Musculoskeletal Medical History: Reports Hx Arthritis Past Surgical History: Reports: Hx Cardiac Surgery - ablation, Hx Section - x4, Hx Cholecystectomy, Hx Kidney (Renal Surgery) - Lt side x 2. Denies: Hx Hysterectomy - Immunizations Hx Diphtheria, Pertussis, Tetanus Vaccination: Yes Review of Systems - Review of Systems Notes: My Normal Review Basic REVIEW OF SYSTEMS: CONSTITUTIONAL : Denies fever, chills, or sweats. Denies recent illness. EENT: Blurred vision when blood sugar gets high. CARDIOVASCULAR: Denies chest pain. RESPIRATORY: Denies cough, cold, or chest congestion. Denies shortness of breath, difficulty breathing, or wheezing. GASTROINTESTINAL: Denies abdominal pain. Denies nausea, vomiting, or diarrhea. MUSCULOSKELETAL: Denies neck or back pain or joint pain or swelling. SKIN: Denies rash or skin lesions. NEUROLOGICAL: Denies altered mental status or loss of consciousness. Intermittent headache. Denies weakness or paralysis or loss of use of either side. Denies problems with gait or speech. Denies sensory or motor loss. ALL OTHER SYSTEMS REVIEWED AND NEGATIVE. Physical Exam - Vital signs Vitals: Temp Pulse Resp BP Pulse Ox 98.0 F 98 18 133/97 H 96 08/19/18 21:32 08/19/18 21:32 08/19/18 21:32 08/19/18 21:32 08/19/18 21:32 - Notes Notes: General Appearance: Well nourished, alert, cooperative, no acute distress, no obvious discomfort. well appearing. Vitals: reviewed, See vital signs table. Head: no swelling or tenderness to the head Eyes: PERRL, EOMI, Conjuctiva clear Mouth: No decreasd moisture Lungs: No wheezing, No rales, No rhonci, No accessory muscle use, good air exchange bilaterally. Heart: Normal rate, Regular rythm, No murmur, no rub Abdomen: Normal BS, soft, No rigidity, No abdominal tenderness, No guarding, no rebound, no abdominal masses, no organomegaly Extremities: strength 5/5 in all extremities, good pulses in all extremities, no swelling or tenderness in the extremities, no edema. Skin: warm, dry, appropriate color, no rash Neuro: speech clear, oriented x 3, normal affect, responds appropriately to questions. Renal nerves II through XII are intact. Distal sensation intact. Patient moves all extremities without difficulty. No focal neurologic deficits on exam. Course - Re-evaluation Re-evalutation: 08/20/18 05:11 Is well-appearing. Feel patient is safe to be discharged home. She is feeling much improved after receiving IV fluids and decreasing of her blood sugar. I talked her length about other options such as insulin. I did discuss the cost of insulin with her. We did look at the cost at [facility] and she said that she should be able to afford insulin and wants to try it. I did write a prescription for sliding scale insulin as well as syringes and needles. I informed her to follow-up close with Dr. Kaiser. I encouraged her return to ER if she has worsening of her blood sugar if she feels unwell. Patient agrees with plan will be discharged home. Dictation of this chart was performed using voice recognition software; therefore, there may be some unintended grammatical errors. - Vital Signs Vital signs: Temp Pulse Resp BP Pulse Ox 98.4 F 84 20 141/66 H 100 08/20/18 03:28 08/20/18 03:28 08/20/18 03:28 08/20/18 03:28 08/20/18 03:28 - Laboratory Result Diagrams: 08/19/18 23:16 08/19/18 23:16 Laboratory results interpreted by me: 08/19/18 08/19/18 08/19/18 23:16 23:16 23:25 RBC 5.85 H MCV 75 L MCH 25.1 L Sodium 136.2 L Chloride 95 L Creatinine 1.31 H Est GFR ( Amer) 51 L Est GFR (Non-Af Amer) 42 L Glucose 278 H Alkaline Phosphatase 142 H Urine Glucose (UA) >=500 H Ur Leukocyte Esterase TRACE H Discharge - Discharge Clinical Impression: Hyperglycemia Condition: Good Disposition: HOME, SELF-CARE Additional Instructions: PLease check your blood sugars before eating breakfast, lunch, and dinner and inject yourself with the amount of insulin that is listed on the sliding scale on your prescription. please check you sugar immediately if you feel very weak or unwell as this can be a sign of your blood sugar getting low. please return to the ER if you continue to have difficulty managing your blood sugar, you have fevers, or if you have any further concerns. Prescriptions: Insulin Aspart [Novolog Insulin 100 Unit/1 ml 10 ml] 0 unit SUBCUT .SLD SCALE #10 ml Syring-Needl,Disp,Insul,0.3 ml [Insulin Syringe 0.3 mL] 1 syr MC ASDIR PRN #[id number] syringe PRN Reason: Referrals: ALYSA KAISER MD [ACTIVE STAFF] - Follow up in 3-5 days
[2018-08-20 03:35] VITALS: BP 141/66
== END 2018-08-20 03:35 | disposition home or self-care (01) ==
LOC: ER 21:27
DX: E11.65 Type 2 diabetes mellitus with hyperglycemia (principal); R51 Headache; H53.8 Other visual disturbances; E11.9 Type 2 diabetes mellitus without complications; Z88.6 Allergy status to analgesic agent; Z91.013 Allergy to seafood; Z79.84 Long term (current) use of oral hypoglycemic drugs; Z90.49 Acquired absence of other specified parts of digestive tract
CPT/HCPCS: 99284; 96360; 36415; 82962; 85025; 80053; 81001; 82803; J7030

== ENCOUNTER 2018-12-13 14:48 | Emergency (ER) | payer BC, OTHER ==
[2018-12-13] MEDS ORDERED: NORMAL SALINE 1000 ML 1,000 ML IV ONE (15:55)
--- NOTE | 2018-12-13 15:57 | ER Document Report ---
Addendum entered and electronically signed by JUANJO WALSH NP 12/13/18 16:10: Doctor's Note Notes: 12/13/18 16:09 After I completed my exam and the nurses were talking to her she stated that she is been having thoughts of suicide. She states she cannot get her stuff together she cannot get treatment and she is been thinking that it just was not worth it to live. She says she does not have any definite plans to harm herself but she has been thinking about it. Original Note: ED Medical Screen (RME) - General Chief Complaint: Breast Problem Stated Complaint: SUGAR ISSUES, BLURRY VISION Time Seen by Provider: 12/13/18 15:54 Mode of Arrival: Ambulatory Information source: Patient Notes: 53-year-old female presents to ED for complaint of pain to her left breast. She states it hurts worse with movement so she thinks that his muscle. She states she is also diabetic with blood sugar of 389 blurred vision. She states she also has elevated blood pressure and depression. She states she is run out of a lot of her medicine and she is having a hard time getting in to see anyone because she does not have any money. She states she was denied for disability and Medicaid. She states she just had a heart attack last year and was sent home due to the [place] but she has been denied disability. Patient is alert oriented respirations regular and unlabored speaking in full sentences walks with a even steady gait. I have greeted and performed a rapid initial assessment of this patient. A comp rehensive ED assessment and evaluation of the patient, analysis of test results and completion of medical decision making process will be conducted by an additional ED providers. Dictation of this chart was performed using voice recognition software; therefore, there may be some unintended grammatical errors. TRAVEL OUTSIDE OF THE [place] IN LAST 30 DAYS: No - Related Data Allergies/Adverse Reactions: iodine [Iodine] Allergy (Severe, Verified 12/13/18 14:53) Anaphylaxis Shellfish * [Shellfish] Allergy (Severe, Verified 12/13/18 14:53) Anaphylaxis hydromorphone [From Dilaudid] Allergy (Verified 12/13/18 14:53) morphine Allergy (Verified 12/13/18 14:53) Past Medical History - Past Medical History Cardiac Medical History: Denies: Hx Coronary Artery Disease, Hx Heart Attack, Hx Hypertension Pulmonary Medical History: Denies: Hx Asthma, Hx Bronchitis, Hx COPD, Hx Pneumonia Neurological Medical History: Denies: Hx Cerebrovascular Accident, Hx Seizures Endocrine Medical History: Reports: Hx Diabetes Mellitus Type 2 Renal/ Medical History: Reports: Hx Kidney Stones - STAGHORN x 2. Denies: Hx Peritoneal Dialysis Musculoskeltal Medical History: Reports Hx Arthritis Past Surgical History: Reports: Hx Cardiac Surgery - ablation, Hx Section - x4, Hx Cholecystectomy, Hx Kidney (Renal Surgery) - Lt side x 2. Denies: Hx Hysterectomy - Immunizations Hx Diphtheria, Pertussis, Tetanus Vaccination: Yes Physical Exam - Vital signs Vitals: Temp Pulse Resp BP Pulse Ox 98.3 F 87 16 148/76 H 94 12/13/18 15:11 12/13/18 15:11 12/13/18 15:11 12/13/18 15:11 12/13/18 15:11 Course - Vital Signs Vital signs: Temp Pulse Resp BP Pulse Ox 98.3 F 87 16 148/76 H 94 12/13/18 15:11 12/13/18 15:11 12/13/18 15:11 12/13/18 15:11 12/13/18 15:11
[2018-12-13 16:32] LABS: VENOUS BLOOD BASE EXCESS -2.6 mmol/L; VENOUS BLOOD PCO2 43.2 mmHg (35-63); VENOUS BLOOD PH 7.35 (7.30-7.42)
[2018-12-13 16:36] LABS: ABSOLUTE BASOPHILS # (AUTO) 0.1 10^3/uL (0.0-0.2); ABSOLUTE EOSINOPHILS # (AUTO) 0.3 10^3/uL (0.0-0.6); ABSOLUTE LYMPHOCYTES (AUTO) 2.3 10^3/uL (0.5-4.7); ABSOLUTE MONOCYTES (AUTO) 0.4 10^3/uL (0.1-1.4); BASOPHILS % (AUTO) 0.7 % (0-2); EOSINOPHILS % (AUTO) 2.8 % (0-6); HEMATOCRIT 43.3 % (36.0-47.0); LYMPHOCYTES % (AUTO) 25.2 % (13-45); MEAN CORPUSCULAR HEMOGLOBIN 24.9 pg (27.0-33.4); MEAN CORPUSCULAR HGB CONC 32.4 g/dL (32.0-36.0); MEAN CORPUSCULAR VOLUME 77 fl (80-97); MONOCYTES % (AUTO) 4.7 % (3-13); PLATELET COUNT 251 10^3/uL (150-450); RED BLOOD COUNT 5.62 10^6/uL (3.72-5.28); RED CELL DISTRIBUTION WIDTH 14.1 % (11.5-14.0); SEGMENTED NEUTROPHILS % (AUTO) 66.6 % (42-78); TOTAL CELLS COUNTED % (AUTO) 100 %
[2018-12-13 16:40] LABS: AMORPHOUS SEDIMENT,URINE TRACE /HPF; APPEARANCE,URINE CLEAR; BILIRUBIN,URINE NEGATIVE (NEGATIVE); COLOR,URINE STRAW; GLUCOSE, URINE >=1000 mg/dL (NEGATIVE); KETONES,URINE NEGATIVE (NEGATIVE); LEUKOCYTE ESTERASE,URINE TRACE (NEGATIVE); NITRITE,URINE NEGATIVE (NEGATIVE); PROTEIN,URINE NEGATIVE (NEGATIVE); URINE SPECIFIC GRAVITY 1.032; UROBILINOGEN,URINE NEGATIVE mg/dL (<2.0)
[2018-12-13 16:52] LABS: ALANINE AMINOTRANSFERASE 27 U/L (9-52); ALBUMIN 4.3 g/dL (3.5-5.0); ALKALINE PHOSPHATASE 157 U/L (38-126); ANION GAP 9 (5-19); ASPARTATE AMINO TRANSFERASE 23 U/L (14-36); BILIRUBIN,DIRECT 0.3 mg/dL (0.0-0.4); BILIRUBIN,TOTAL 0.5 mg/dL (0.2-1.3); BLOOD UREA NITROGEN 15 mg/dL (7-20); CALCIUM 9.4 mg/dL (8.4-10.2); CARBON DIOXIDE 25 mmol/L (22-30); CHLORIDE 102 mmol/L (98-107); GLUCOSE 382 mg/dL (75-110); POTASSIUM 4.5 mmol/L (3.6-5.0); TOTAL PROTEIN 7.2 g/dL (6.3-8.2)
[2018-12-13 16:53] LABS: ACETAMINOPHEN < 10 ug/mL (10-30); ALCOHOL < 10 mg/dL (NONE DETECTED); SALICYLATE < 1.0 mg/dL (2.0-20.0)
[2018-12-13 16:57] LABS: URINE AMPHETAMINES SCREEN NEGATIVE; URINE BARBITURATES SCREEN NEGATIVE; URINE BENZODIAZEPINES SCREEN NEGATIVE; URINE COCAINE SCREEN UNCONFIRMED POSITIVE; URINE MARIJUANA (THC) SCREEN NEGATIVE; URINE METHADONE SCREEN NEGATIVE; URINE PHENCYCLIDINE SCREEN NEGATIVE
[2018-12-13 17:15] LABS: CREATINE KINASE MB 0.51 ng/mL (<4.55)
[2018-12-13 17:16] LABS: TROPONIN I < 0.012 ng/mL
--- NOTE | 2018-12-13 18:06 | ER Document Report ---
HPI - HPI Patient complains to provider of: left breast pain, high blood sugar, Time Seen by Provider: 12/13/18 15:54 Onset/Duration: Gradual, Intermittent Quality of pain: Achy Severity: Mild Pain Level: 1 Context: 53yr old female pt here for a plethora of complaints on going intermittently for months since her [place] where she was not able to return to work and subsequently lost her job and health insurance and has had monetary issues since and some depression. states since her surgery she has had pain in her left breast region and around her left sternum from her cabg around feb 2018. she hasn't f/u with obgyn for a mammogram recently. has had a neg mammogram in the last year or so she thinks. she has f/u with cards and was cleared per pt by them however has had continued intermittent pain in her left breast since her surgery. she still has all of her meds but hasn't f/u with a pcp and was apparently denied disability. she plans to move in with her daughter. she is somewhat tearful but appropriate. she denies si/hi, or vis/aud hallucinations to me or prior hx of this and she does feel safe at home despite what triage note states. she denies si what so ever to me multiple times and assures me she isn't suicidal she is just stressed with not being able to work and make money. she denies any new fall or trauma. states her sugars have been running higher lately as she hasn't been taking her diabetes medication as prescribed and trying to stretch it out and make it last longer due to monetary reasons. no prior hx of dka. she states when her sugars have gotten high in the past it makes her vision intermittently blurry and this is her baseline and she knows to check her sugar and take her insulin then. she denies vision changes currently. no prior hx of glaucoma or diabetic retinopathy. states normal eye exam last year. i do not have access to these records for review however. she states she also will get intermittently dizzy like she may pass out not like the room is spinning when her sugars get high and again this is her usual. nothing different. she denies dizziness currently. no syncope. no palpitations. no hx of cva, tia, or chf. no ripping or tearing sensation. denies any blood thinners other than daily baby asa. No prior history of blood clots. No recent long distance travel/immobilization, recent surgery, exogenous estrogen use, hemoptysis, history of cancer, or calf pain/swelling. No prior history of arrhythmias. no other complaints at this time. pain controlled with otc meds. she refused ekg per report to me and states she would just like out pt resources to be able to help her get established for her chronic issues and out pt resources for medication help and she states she doesn't want any further workup other than what has already been done and to just be dc'd with these as she doesn't want admission or a higher bill secondary to this. she denies intoxication. she denies . states she is post aleksander pausal. Associated Symptoms: denies: Chest pain, Nonproductive cough, Productive cough, Fever, Headache, Hurts to breath, Nausea, Vomiting, Shortness of breath, Sweating, Weakness Exacerbated by: denies: Movement, Coughing, Deep breathing Relieved by: Other - meds. denies: Remaining still Similar symptoms previously: Yes Recently seen / treated by doctor: No - ROS Systems Reviewed and Negative: Yes All other systems reviewed and negative - negative to include 10, unless mentioned in the hpi - REPRODUCTIVE Reproductive: DENIES: : - DERM Skin Color: Normal Past Medical History - General Information source: Patient - Social History Smoking Status: Unknown if Ever Smoked Frequency of alcohol use: Occasional Drug Abuse: Cocaine - rare Lives with: Family Family History: Reviewed & Not Pertinent Patient has suicidal ideation: No Patient has homicidal ideation: No - Past Medical History Cardiac Medical History: Reports: Hx Hypercholesterolemia Denies: Hx Coronary Artery Disease, Hx Heart Attack, Hx Hypertension, Hx Pulmonary Embolism Pulmonary Medical History: Denies: Hx Asthma, Hx Bronchitis, Hx COPD, Hx Pneumonia Neurological Medical History: Denies: Hx Cerebrovascular Accident, Hx Seizures Endocrine Medical History: Reports: Hx Diabetes Mellitus Type 2 Renal/ Medical History: Reports: Hx Kidney Stones - STAGHORN x 2. Denies: Hx Peritoneal Dialysis Malignancy Medical History: Reports: None GI Medical History: Reports: Hx Gastroesophageal Reflux Disease Musculoskeletal Medical History: Reports Hx Arthritis Psychiatric Medical History: Reports: Hx Depression Past Surgical History: Reports: Hx Cardiac Surgery - ablation, cabg, Hx Section - x4, Hx Cholecystectomy, Hx Kidney (Renal Surgery) - Lt side x 2. Denies: Hx Hysterectomy - Immunizations Immunizations up to date: Yes Vertical Provider Document - CONSTITUTIONAL Notes: >>>> PHYSICAL_EXAM: GENERAL_APPEARANCE: well_nourished, alert, cooperative, no_acute_distress, mild_obvious_discomfort. pleasant, obese middle aged female, initially tearful however eventually smiling, speaking in full sentences, in no sign of pain or resp distress, no one is with her VITALS: reviewed, see vital signs table. HEAD: no_swelling\tenderness on the head. normocephalic. atraumatic. no decker signs. no raccoons eyes. EARS: canals_clear_bilat, TMs_clear. EYES: PERRL, EOMI without pain. no photophobia. no nystagmus. no drainage. no subconjunctival hemorrhage. no hyphema, conjunctiva_clear. NOSE: no_nasal_discharge. MOUTH: (-)decreased moisture. THROAT: no_tonsilar_inflammation, no_airway_obstruction. no_lymphadenopathy. no thrush NECK: supple, no_neck_tenderness, (-)thyromegaly. full rom. full strength. no jvd. no carotid bruit. no meningeal signs. BACK: no_back_tenderness. CHEST_WALL: pos_chest_tenderness to palpation over left mid peristernal region which reproduces pts breast/chest pain she has had intermittently for months. there is a well healed midline scar. no sign of dehiscence or post op compl ication. no crepitation. no flail chest. no overlying skin changes LUNGS: no_wheezing, ctab (-)accessory muscle use, good air exchange bilateral. HEART: normal_rate, normal_rhythm, no_murmur, BREAST: right breast exam deferred, left breast exam. no grossly palpable lumps. no nipple discharge, bleeding, or inversion. no skin dimpling or orange peeling appearance. mild ttp in the upper medial quadrant of the left breast that reproduces pts pain at about 10 o clock peristernally. no overlying skin changes. no axillary lymphadenopathy. ABDOMEN: normal_BS, soft, no_abd_tenderness, (-)guarding, (-)rebound, no distension or peritoneal signs. no cva ttp EXTREMITIES: strength 5/5 in all_extremities, good pulses in all_extremities, no_swelling\tenderness in the extremities, no_edema. full rom. normal gait. good pulses. brisk cap refill. 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 neg joleen sign NEURO: motor and sensation intact, cranial nerves 2-12 intact, cerebellar fxn intact SKIN: warm, dry, good_color, no_rash. no grossly visible overlying skin changes or signs of trauma MENTAL_STATUS: speech_clear, oriented_X_3, normal_affect, responds_appropriately to questions. - INFECTION CONTROL TRAVEL OUTSIDE OF THE [place] IN LAST 30 DAYS: No Course - Re-evaluation Re-evalutation: pt here for a plethora of complaints ongoing for months since her [place] where she was not able to return to work and subsequently lost her job and health insurance and has had monetary issues since and some depression. states since her surgery she has had pain in her left breast region and around her sternum from her cabg feb 2018. she hasn't f/u with obgyn for a mammogram recently. advised pt she needs to do this. she has f/u with cards and was cleared per pt by them however has had continued intermittent pain in her left breast since her surgery. she still has all of her meds but hasn't f/u with a pcp and was ap parently denied disability. she plans to move in with her daughter. she is somewhat tearful but appropriate. she denies si/hi, or vis/aud hallucinations to me or prior hx of this and she does feel safe at home despite what triage note states she denies si what so ever to me multiple times and assures me she isn't suicidal she is just stressed with not being able to work and make money. she denies any new fall or trauma. states her sugars have been running higher lately as she hasn't been taking her diabetes medication as prescribed and trying to stretch it out and make it last longer due to monetary reasons. no prior hx of dka. she states when her sugars have gotten high in the past it makes her vision intermittently blurry and this is her baseline and she knows to check her sugar and take her insulin then. she denies vision changes currently. no prior hx of glaucoma or diabetic retinopathy. states normal eye exam last year. i do not have access to these records for review however. labs unremarkable other than a mild hyperglycemia without signs of dka that improved with fluids and cocaine positive uds. pt states she is post menopausal so a upreg wasn't ordered. states she feels intermittently dizzy when her sugars get high as well but denies any dizziness currently. ekg refused by pt as she states she isn't having cp just her usual breast pain and doesn't want an ekg. visual acuity and ortho states were also ordered however not done via nursing prior to dc unfortunately but pt denies any vision changes and dizziness currently and is otherwise neurononfocal and ambulates normally. cxr neg per rad and reviewed by myself. pt informed of her findings. she was given outpt resources to be able to obtain her meds and get in to see a pcp for f/u via nursing. she is well appearing. she wishes to be discharged. continues to deny si/hi, or vis/aud hallucinations. she has her meds with her. she is already on an anti-depressant. advised to cont to take these as prescribed. advised to keep a close check on her sugars and adjust her insulin as prescribed. advised to eat and drink at regular intervals. advised to dc her illegal drug use. advised to f/u with pcp/care clinic/psych in 1-2 days. return for any worsening symptoms. vss. well appearing. satting well on ra. neurononf ocal. pt understands and agrees to plan. nontoxic in appearance. On reexam, pt improved with tx listed. remained stable. nontoxic. well appearing. pain controlled. tolerating po. requesting to go home. case discussed with ER Attending, Dr. mancera, who directed and agrees with plan of care and advised no further workup indicated at this time and pt is stable for dc home with close f/u with pcp/specialist. Documentation achieved through voice recording which my lead to some occasional accidental typographical errors. Extensive efforts have been made to proof read documentation to make sure these are the least as possible. Category Date Time Status Accucheck (ED) NOW Care 12/13/18 19:22 Active Accucheck (ED) Q1H Care 12/13/18 15:55 Completed Consult Mobile Crisis STAT Care 12/13/18 16:07 Active EKG Documentation STAT Care 12/13/18 16:09 Active Orthostatic Vital Sign (ED) NOW Care 12/13/18 18:01 Active PCT AccuChek Documentation NOW Care 12/13/18 15:55 Active PCT AccuChek Documentation NOW Care 12/13/18 19:22 Active Visual Acuity (ED) NOW Care 12/13/18 18:01 Active Vital Signs (ED) Q4H Care 12/13/18 16:07 Active Consult Documentation [RC] SOHAM Cons 12/13/18 16:09 Active Physician [CONS] Stat Cons 12/13/18 16:07 Ordered Adult Diet [DIET] Diet 12/13/18 Dinner Active Chest [CHEST 2 VIEWS] [RAD] Stat Exams 12/13/18 18:02 Completed ACETAMINOPHEN [CHEM] Stat Lab 12/13/18 16:13 Completed ADD ON [ADD ON TESTING BLD IN LAB] [CHEM] Stat Lab 12/13/18 16:13 Completed ALCOHOL [CHEM] Stat Lab 12/13/18 16:13 Completed CBC WITH DIFF [HEME] Stat Lab 12/13/18 16:13 Completed COMPREHENSIVE METABOLIC PANEL [CHEM] Stat Lab 12/13/18 16:13 Completed CREATINE KINASE MB [CHEM] Stat Lab 12/13/18 16:13 Completed MAGNESIUM [CHEM] Stat Lab 12/13/18 16:13 Completed SALICYLATE [CHEM] Stat Lab 12/13/18 16:13 Completed TROPONIN I [CHEM] Stat Lab 12/13/18 16:13 Completed URINALYSIS [URIN] Stat Lab 12/13/18 16:13 Completed URINE DRUG SCREEN [CHEM] Stat Lab 12/13/18 16:13 Completed VENOUS BLOOD GAS (PERIPHERAL) [CHEM] Stat Lab 12/13/18 16:13 Completed Normal Saline 1000 ml [NaCl 0.9% 1000 ml IV Soln] 1,000 Med 12/13/18 15:55 Discontinued ml IV BOLUS - Vital Signs Vital signs: Temp Pulse Resp BP Pulse Ox 98.3 F 87 16 148/76 H 94 12/13/18 15:11 12/13/18 15:11 12/13/18 15:11 12/13/18 15:11 12/13/18 15:11 Temp Pulse Pulse Resp BP BP Pulse Ox 12/13/18 20:00 97.7 F 72 18 155/87 H 97 12/13/18 15:11 98.3 F 87 16 148/76 H 94 - Laboratory Result Diagrams: 12/13/18 16:13 12/13/18 16:13 Laboratory results interpreted by me: 12/13/18 12/13/18 12/13/18 16:13 16:13 16:13 RBC 5.62 H MCV 77 L MCH 24.9 L RDW 14.1 H Sodium 136.1 L Glucose 382 H Alkaline Phosphatase 157 H Urine Glucose (UA) >=1000 H Ur Leukocyte Esterase TRACE H Salicylates < 1.0 L Acetaminophen < 10 L Labs- Entire Visit 12/13/18 12/13/18 12/13/18 16:13 16:13 16:13 WBC 9.0 RBC 5.62 H Hgb 14.0 Hct 43.3 MCV 77 L MCH 24.9 L MCHC 32.4 RDW 14.1 H Plt Count 251 Seg Neutrophils % 66.6 Lymphocytes % 25.2 Monocytes % 4.7 Eosinophils % 2.8 Basophils % 0.7 Absolute Neutrophils 6.0 Absolute Lymphocytes 2.3 Absolute Monocytes 0.4 Absolute Eosinophils 0.3 Absolute Basophils 0.1 VBG pH VBG pCO2 VBG HCO3 VBG Base Excess Sodium 136.1 L Potassium 4.5 Chloride 102 Carbon Dioxide 25 Anion Gap 9 BUN 15 Creatinine 0.83 Est GFR ( Amer) > 60 Est GFR (Non-Af Amer) > 60 Glucose 382 H POC Glucose Calcium 9.4 Magnesium Total Bilirubin 0.5 Direct Bilirubin 0.3 Neonat Total Bilirubin Not Reportable Neonat Direct Bilirubin Not Reportable Neonat Indirect Bili Not Reportable AST 23 ALT 27 Alkaline Phosphatase 157 H CK-MB (CK-2) 0.51 Troponin I < 0.012 Total Protein 7.2 Albumin 4.3 Urine Color Urine Appearance Urine pH Ur Specific [place] Urine Protein Urine Glucose (UA) Urine Ketones Urine Blood Urine Nitrite Urine Bilirubin Urine Urobilinogen Ur Leukocyte Esterase Urine WBC (Auto) Urine RBC (Auto) Urine Bacteria (Auto) Squamous Epi Cells Auto Amorphous Sediment Auto Urine Mucus (Auto) Urine Ascorbic Acid Salicylates < 1.0 L Urine Opiates Screen Urine Methadone Screen Acetaminophen < 10 L Ur Barbiturates Screen Ur Phencyclidine Scrn Ur Amphetamines Screen U Benzodiazepines Scrn Urine Cocaine Screen U Marijuana (THC) Screen Serum Alcohol < 10 12/13/18 12/13/18 12/13/18 16:13 16:13 16:13 WBC RBC Hgb Hct MCV MCH MCHC RDW Plt Count Seg Neutrophils % Lymphocytes % Monocytes % Eosinophils % Basophils % Absolute Neutrophils Absolute Lymphocytes Absolute Monocytes Absolute Eosinophils Absolute Basophils VBG pH 7.35 VBG pCO2 43.2 VBG HCO3 23.0 VBG Base Excess -2.6 Sodium Potassium Chloride Carbon Dioxide Anion Gap BUN Creatinine Est GFR ( Amer) Est GFR (Non-Af Amer) Glucose POC Glucose Calcium Magnesium Total Bilirubin Direct Bilirubin Neonat Total Bilirubin Neonat Direct Bilirubin Neonat Indirect Bili AST ALT Alkaline Phosphatase CK-MB (CK-2) Troponin I Total Protein Albumin Urine Color STRAW Urine Appearance CLEAR Urine pH 5.0 Ur Specific [place] 1.032 Urine Protein NEGATIVE Urine Glucose (UA) >=1000 H Urine Ketones NEGATIVE Urine Blood NEGATIVE Urine Nitrite NEGATIVE Urine Bilirubin NEGATIVE Urine Urobilinogen NEGATIVE Ur Leukocyte Esterase TRACE H Urine WBC (Auto) 30 Urine RBC (Auto) 8 Urine Bacteria (Auto) TRACE Squamous Epi Cells Auto 49 Amorphous Sediment Auto TRACE Urine Mucus (Auto) RARE Urine Ascorbic Acid NEGATIVE Salicylates Urine Opiates Screen NEGATIVE Urine Methadone Screen NEGATIVE Acetaminophen Ur Barbiturates Screen NEGATIVE Ur Phencyclidine Scrn NEGATIVE Ur Amphetamines Screen NEGATIVE U Benzodiazepines Scrn NEGATIVE Urine Cocaine Screen UNCONFIRMED POSITIVE U Marijuana (THC) Screen NEGATIVE Serum Alcohol 12/13/18 12/13/18 16:13 19:36 WBC RBC Hgb Hct MCV MCH MCHC RDW Plt Count Seg Neutrophils % Lymphocytes % Monocytes % Eosinophils % Basophils % Absolute Neutrophils Absolute Lymphocytes Absolute Monocytes Absolute Eosinophils Absolute Basophils VBG pH VBG pCO2 VBG HCO3 VBG Base Excess Sodium Potassium Chloride Carbon Dioxide Anion Gap BUN Creatinine Est GFR ( Amer) Est GFR (Non-Af Amer) Glucose POC Glucose 296 H Calcium Magnesium 1.8 Total Bilirubin Direct Bilirubin Neonat Total Bilirubin Neonat Direct Bilirubin Neonat Indirect Bili AST ALT Alkaline Phosphatase CK-MB (CK-2) Troponin I Total Protein Albumin Urine Color Urine Appearance Urine pH Ur Specific [place] Urine Protein Urine Glucose (UA) Urine Ketones Urine Blood Urine Nitrite Urine Bilirubin Urine Urobilinogen Ur Leukocyte Esterase Urine WBC (Auto) Urine RBC (Auto) Urine Bacteria (Auto) Squamous Epi Cells Auto Amorphous Sediment Auto Urine Mucus (Auto) Urine Ascorbic Acid Salicylates Urine Opiates Screen Urine Methadone Screen Acetaminophen Ur Barbiturates Screen Ur Phencyclidine Scrn Ur Amphetamines Screen U Benzodiazepines Scrn Urine Cocaine Screen U Marijuana (THC) Screen Serum Alcohol - Diagnostic Test Radiology reviewed: Image reviewed, Reports reviewed Radiology results interpreted by me: Chest X-Ray 12/13/18 18:02 IMPRESSION: NO ACUTE FINDINGS. - EKG Interpretation by Me Additional EKG results interpreted by me: refused by pt Discharge - Discharge Clinical Impression: Noncompliance with medication regimen, Poorly controlled diabetes mellitus, Breast pain, left, Hyperglycemia, Cocaine abuse Condition: Good Disposition: HOME, SELF-CARE Instructions: Diabetes ([facility]) Additional Instructions: Follow-up with PCP/care clinic/psychiatrist in 1 to 2 days. Return for any worsening symptoms. continue to take your medications as prescribed. stop using illegal drugs. check your blood sugars often and take your insulin and diabetes medication you have with you as prescribed. eat and drink at regular intervals. Referrals: DARYL MCELROY MD [HONORARY] - Follow up tomorrow (call tomorrow for a follow up apt as discussed)
--- NOTE | 2018-12-13 18:37 | RADIOLOGY REPORT (SQ) ---
EXAM DESCRIPTION: CHEST 2 VIEWS COMPLETED DATE/TIME: 12/13/2018 6:17 pm REASON FOR STUDY: dizzy COMPARISON: 07/15/2018 TECHNIQUE: Frontal and lateral radiographic views of the chest acquired. NUMBER OF VIEWS: Two view. LIMITATIONS: None. FINDINGS: LUNGS AND PLEURA: No pneumothorax. No consolidation or pleural effusion. MEDIASTINUM AND HILAR STRUCTURES: Stable. HEART AND VASCULAR STRUCTURES: Stable. BONES: No acute findings. HARDWARE: CABG. OTHER: No other significant finding. IMPRESSION: NO ACUTE FINDINGS. TECHNICAL DOCUMENTATION: JOB ID: [id number] 2010 [employer]- All Rights Reserved Reading location - IP/workstation name: [employer]
[2018-12-13 20:24] VITALS: BP 155/87
== END 2018-12-13 20:00 | disposition home or self-care (01) ==
LOC: ER 14:48
DX: N64.4 Mastodynia (principal); E11.65 Type 2 diabetes mellitus with hyperglycemia; T38.3X6A Underdosing of insulin and oral hypoglycemic [antidiabetic] drugs, initial encounter; Z91.120 Patient's intentional underdosing of medication regimen due to financial hardship; Z91.14 Patient's other noncompliance with medication regimen; F14.10 Cocaine abuse, uncomplicated; E66.9 Obesity, unspecified; F32.9 Major depressive disorder, single episode, unspecified; Z79.899 Other long term (current) drug therapy; Z56.0 Unemployment, unspecified; Z79.82 Long term (current) use of aspirin; Z95.1 Presence of aortocoronary bypass graft
CPT/HCPCS: 99283; 96360; 96361; 36415; 82553; 82962; 80307 ×4; 83735; 85025; 80053; 81001; 84484; 82803; 71046; J7030

== ENCOUNTER → 2019-02-02 | Outpatient (CLI) | payer OTHER ==
[2019-02-02 10:56] LABS: ABSOLUTE BASOPHILS # (AUTO) 0.1 10^3/uL (0.0-0.2); ABSOLUTE EOSINOPHILS # (AUTO) 0.2 10^3/uL (0.0-0.6); ABSOLUTE MONOCYTES (AUTO) 0.6 10^3/uL (0.1-1.4); ABSOLUTE NEUT (AUTO) 6.8 10^3/uL (1.7-8.2); BASOPHILS % (AUTO) 0.7 % (0-2); EOSINOPHILS % (AUTO) 2.2 % (0-6); HEMATOCRIT 42.5 % (36.0-47.0); HEMOGLOBIN 13.9 g/dL (12.0-15.5); LYMPHOCYTES % (AUTO) 21.1 % (13-45); MEAN CORPUSCULAR HGB CONC 32.7 g/dL (32.0-36.0); MEAN CORPUSCULAR VOLUME 77 fl (80-97); MONOCYTES % (AUTO) 5.7 % (3-13); PLATELET COUNT 259 10^3/uL (150-450); RED BLOOD COUNT 5.56 10^6/uL (3.72-5.28); RED CELL DISTRIBUTION WIDTH 13.7 % (11.5-14.0); SEGMENTED NEUTROPHILS % (AUTO) 70.3 % (42-78); TOTAL CELLS COUNTED % (AUTO) 100 %; WHITE BLOOD COUNT 9.7 10^3/uL (4.0-10.5)
[2019-02-02 11:29] LABS: CHOLESTEROL 249.29 mg/dL (0-200); TRIGLYCERIDES 289 mg/dL (<150)
[2019-02-02 11:40] LABS: DIRECT LDL 170 mg/dL (<100)
[2019-02-02 11:45] LABS: VLDL CHOLESTEROL 57.8 mg/dL (10-31)
== END ==
LOC: CCC 09:47
DX: Z00.00 Encounter for general adult medical examination without abnormal findings (principal); E11.8 Type 2 diabetes mellitus with unspecified complications
CPT/HCPCS: 36415; 80061; 83036; 85025

== ENCOUNTER 2019-03-02 12:13 | Emergency (ER) | payer MEDICAID, OTHER ==
[2019-03-02] MEDS ORDERED: ONDANSETRON 4 MG TAB.RAPDIS PO ONE (12:37)
--- NOTE | 2019-03-02 12:39 | ER Document Report ---
ED Medical Screen (RME) - General Chief Complaint: Flank Pain Stated Complaint: FLANK PAIN Time Seen by Provider: 03/02/19 12:35 Primary Care Provider: JERONIMO HOOD [Primary Care Provider] - Follow up as needed Mode of Arrival: Ambulatory Information source: Patient Notes: 53-year-old female with history of cardiac disease diabetes and history of of kidney stones presents to the emergency department with pain with void left flank pain that started yesterday. Also complaining of vomiting denies fever diarrhea. Left flank tender to palpate I have greeted and performed a rapid initial assessment of this patient. A comprehensive ED assessment and evaluation of the patient, analysis of test results and completion of the medical decision making process will be conducted by additional ED providers. Dictation of this chart was performed using voice recognition software; therefore, there may be some unintended grammatical errors. TRAVEL OUTSIDE OF THE [place] IN LAST 30 DAYS: No - Related Data Allergies/Adverse Reactions: iodine [Iodine] Allergy (Severe, Verified 12/13/18 14:53) Anaphylaxis Shellfish * [Shellfish] Allergy (Severe, Verified 12/13/18 14:53) Anaphylaxis hydromorphone [From Dilaudid] Allergy (Verified 12/13/18 14:53) morphine Allergy (Verified 12/13/18 14:53) Past Medical History - Past Medical History Cardiac Medical History: Reports: Hx Hypercholesterolemia Denies: Hx Coronary Artery Disease, Hx Heart Attack, Hx Hypertension, Hx Pulmonary Embolism Pulmonary Medical History: Denies: Hx Asthma, Hx Bronchitis, Hx COPD, Hx Pneumonia Neurological Medical History: Denies: Hx Cerebrovascular Accident, Hx Seizures Endocrine Medical History: Reports: Hx Diabetes Mellitus Type 2 Renal/ Medical History: Reports: Hx Kidney Stones - STAGHORN x 2. Denies: Hx Peritoneal Dialysis GI Medical History: Reports: Hx Gastroesophageal Reflux Disease Musculoskeltal Medical History: Reports Hx Arthritis Psychiatric Medical History: Reports: Hx Depression Past Surgical History: Reports: Hx Cardiac Surgery - ablation, cabg, Hx Section - x4, Hx Cholecystectomy, Hx Kidney (Renal Surgery) - Lt side x 2. Denies: Hx Hysterectomy - Immunizations Immunizations up to date: Yes Hx Diphtheria, Pertussis, Tetanus Vaccination: Yes Doctor's Discharge - Discharge [facility] Provider[facility] - Follow up as needed
[2019-03-02 13:14] LABS: ABSOLUTE BASOPHILS # (AUTO) 0.1 10^3/uL (0.0-0.2); ABSOLUTE EOSINOPHILS # (AUTO) 0.2 10^3/uL (0.0-0.6); ABSOLUTE LYMPHOCYTES (AUTO) 1.1 10^3/uL (0.5-4.7); ABSOLUTE MONOCYTES (AUTO) 0.8 10^3/uL (0.1-1.4); ABSOLUTE NEUT (AUTO) 10.9 10^3/uL (1.7-8.2); BASOPHILS % (AUTO) 0.4 % (0-2); EOSINOPHILS % (AUTO) 1.2 % (0-6); HEMATOCRIT 43.1 % (36.0-47.0); LYMPHOCYTES % (AUTO) 8.7 % (13-45); MEAN CORPUSCULAR HEMOGLOBIN 25.2 pg (27.0-33.4); MEAN CORPUSCULAR HGB CONC 32.5 g/dL (32.0-36.0); MEAN CORPUSCULAR VOLUME 78 fl (80-97); MONOCYTES % (AUTO) 6.3 % (3-13); PLATELET COUNT 244 10^3/uL (150-450); RED BLOOD COUNT 5.57 10^6/uL (3.72-5.28); RED CELL DISTRIBUTION WIDTH 14.1 % (11.5-14.0); SEGMENTED NEUTROPHILS % (AUTO) 83.4 % (42-78); TOTAL CELLS COUNTED % (AUTO) 100 %; WHITE BLOOD COUNT 13.1 10^3/uL (4.0-10.5)
[2019-03-02 13:19] LABS: APPEARANCE,URINE CLOUDY; BILIRUBIN,URINE NEGATIVE (NEGATIVE); COLOR,URINE YELLOW; GLUCOSE, URINE >=500 mg/dL (NEGATIVE); KETONES,URINE NEGATIVE (NEGATIVE); LEUKOCYTE ESTERASE,URINE LARGE (NEGATIVE); NITRITE,URINE NEGATIVE (NEGATIVE); PROTEIN,URINE 100 mg/dL (NEGATIVE); UROBILINOGEN,URINE NEGATIVE mg/dL (<2.0)
[2019-03-02 13:29] LABS: ALBUMIN 4.3 g/dL (3.5-5.0); ALKALINE PHOSPHATASE 97 U/L (38-126); ANION GAP 11 (5-19); ASPARTATE AMINO TRANSFERASE 16 U/L (14-36); BILIRUBIN,DIRECT 0.1 mg/dL (0.0-0.4); BILIRUBIN,TOTAL 0.6 mg/dL (0.2-1.3); BLOOD UREA NITROGEN 14 mg/dL (7-20); CALCIUM 9.5 mg/dL (8.4-10.2); CARBON DIOXIDE 26 mmol/L (22-30); CHLORIDE 100 mmol/L (98-107); GLUCOSE 311 mg/dL (75-110); POTASSIUM 3.7 mmol/L (3.6-5.0); TOTAL PROTEIN 7.3 g/dL (6.3-8.2)
--- NOTE | 2019-03-02 13:51 | RADIOLOGY REPORT (SQ) ---
EXAM DESCRIPTION: CT ABD/PELVIS NO ORAL OR IV COMPLETED DATE/TIME: 03/02/2019 1:39 pm REASON FOR STUDY: FLANK PAIN COMPARISON: 08/25/2014 TECHNIQUE: CT scan of the abdomen and pelvis performed without intravenous or oral contrast. Images reviewed with lung, soft tissue, and bone windows. Reconstructed coronal and sagittal MPR images revi ewed. All images stored on PACS. All CT scanners at this facility use dose modulation, iterative reconstruction, and/or weight based d osing when appropriate to reduce radiation dose to as low as reasonably achievable (ALARA). [facility]: Dose Right [facility]: CareDose [facility]: Dose Right [facility]: Teradose 4D [facility]: Smart [employer] RADIATION DOSE: CT Rad equipment meets quality standard of care and radiation dose reduction techniq ues were employed. CTDIvol: 9.6 mGy. DLP: 520 mGy-cm.mGy. LIMITATIONS: None. FINDINGS: LOWER CHEST: No significant findings. No nodules or infiltrates. NON-CONTRASTED LIVER, SPLEEN, ADRENALS: Evaluation limited by lack of IV contrast. No identified sign ificant masses. PANCREAS: No masses. No peripancreatic inflammatory changes. GALLBLADDER: Surgically absent. RIGHT KIDNEY AND URETER: No suspicious masses. Assessment limited by lack of IV contrast. No signif icant calcifications. No hydronephrosis or hydroureter. LEFT KIDNEY AND URETER: No suspicious masses. Assessment limited by lack of IV contrast. Suspect a v cordelia tiny, almost imperceptible calculus at the left ureterovesicular junction (series 3, image 77) wi th mild associated left hydronephrosis. Additional nonobstructive calculus in the inferior pole of t he left kidney. AORTA AND RETROPERITONEUM: No aneurysm. No retroperitoneal masses or adenopathy. BOWEL AND PERITONEAL CAVITY: No obvious masses or inflammatory changes. No free fluid. APPENDIX: Normal. PELVIS, BLADDER, AND ABDOMINAL WALL:No abnormal masses. No free fluid. Bladder normal. BONES: No significant findings. OTHER: No other significant finding. IMPRESSION: Suspect a very tiny, almost imperceptible calculus at the left ureterovesicular junction (series 3, image 77) with mild associated left hydronephrosis. Additional nonobstructive calculus i n the inferior pole of the left kidney. COMMENT: Quality ID # [id number]: Final reports with documentation of one or more dose reduction techniques (e.g., Automated exposure control, adjustment of the mA and/or kV according to patient size, use of iterative reconstruction technique) TECHNICAL DOCUMENTATION: JOB ID: [id number] [employer]- All Rights Reserved Reading location - IP/workstation name: [email or web address]
[2019-03-02] MEDS ORDERED: CEFTRIAXONE 1 GM/D5W RTU 1 GM/50 ML RTUPB IV ONE (14:27)
[2019-03-02] MEDS ORDERED: PHENAZOPYRIDINE HCL 200 MG TABLET PO ONE (14:27)
[2019-03-02] MEDS ORDERED: TAMSULOSIN HCL 0.4 MG CAP.SR.24H PO ONE (14:28)
[2019-03-02 14:36] VITALS: BP 125/64
--- NOTE | 2019-03-02 14:57 | ER Document Report ---
HPI - HPI Patient complains to provider of: Left flank and lower pelvic pain Time Seen by Provider: 03/02/19 12:35 Onset: Yesterday Onset/Duration: Gradual Quality of pain: Achy, Burning Pain Level: 4 Context: Patient states that she developed left flank pain yesterday. Patient complains of lower pelvic pain today. Patient states left flank pain is presently resolv ed. Patient states that she has intermittent suprapubic tenderness only when she voids. Patient does report nausea and vomiting x1 episode today. No fever no diarrhea. Patient does have history of kidney stones and is concerned about this today. Associated Symptoms: Vomiting, Other - Lower abdominal pain. denies: Fever Exacerbated by: Denies Relieved by: Denies Similar symptoms previously: Yes Recently seen / treated by doctor: No - ROS ROS below otherwise negative: Yes Systems Reviewed and Negative: Yes All other systems reviewed and negative - CONSTITUTIONAL Constitutional: DENIES: Fever, Chills - NEURO Neurology: DENIES: Weakness - GASTROINTESTINAL Gastrointestinal: REPORTS: Abdominal Pain, Nausea, Patient vomiting. DENIES: Diarrhea - URINARY Urinary: REPORTS: Dysuria. DENIES: Urgency, Frequency - REPRODUCTIVE Reproductive: DENIES: : - MUSCULOSKELETAL Musculoskeletal: REPORTS: Back Pain - DERM Skin Color: Normal Skin Problems: None Past Medical History - General Information source: Patient - Social History Smoking Status: Current Every Day Smoker Chew tobacco use (# tins/day): No Smoking Education Provided: Yes Frequency of alcohol use: None Drug Abuse: None Occupation: none Family History: Reviewed & Not Pertinent Patient has suicidal ideation: No Patient has homicidal ideation: No - Past Medical History Cardiac Medical History: Reports: Hx Hypercholesterolemia, Hx Hypertension Endocrine Medical History: Reports: Hx Diabetes Mellitus Type 2 Renal/ Medical History: Reports: Hx Kidney Stones - [place] x 2. Denies: Hx Peritoneal Dialysis GI Medical History: Reports: Hx Gastroesophageal Reflux Disease Musculoskeletal Medical History: Reports Hx Arthritis Psychiatric Medical History: Reports: Hx Depression Past Surgical History: Reports: Hx Cardiac Surgery - ablation, cabgx3, Hx Section - x4, Hx Cholecystectomy, Hx Kidney (Renal Surgery) - Lt side x 2. Denies: Hx Hysterectomy - Immunizations Immunizations up to date: Yes Hx Diphtheria, Pertussis, Tetanus Vaccination: Yes Vertical Provider Document - CONSTITUTIONAL Agree With Documented VS: Yes Exam Limitations: No Limitations General Appearance: WD/WN, No Apparent Distress - INFECTION CONTROL TRAVEL OUTSIDE OF THE [place] IN LAST 30 DAYS: No - HEENT HEENT: Atraumatic, Normocephalic - NECK Neck: Normal Inspection, Supple. negative: Lymphadenopathy-Left, Lymphadenopathy-Right - RESPIRATORY Respiratory: Breath Sounds Normal, No Respiratory Distress - CARDIOVASCULAR Cardiovascular: Regular Rate, Regular Rhythm - GI/ABDOMEN Gastrointestinal: Abdomen Soft, Abdomen Tender - suprapubic - BACK Back: Normal Inspection. negative: CVA Tenderness-Right, CVA Tenderness-Left - MUSCULOSKELETAL/EXTREMETIES Musculoskeletal/Extremeties: ROYA PAUL - NEURO Level of Consciousness: Awake, Alert, Appropriate Motor/Sensory: No Motor Deficit - DERM Integumentary: Warm, Dry, No Rash Course - Re-evaluation Re-evalutation: 03/02/19 14:55 Patient states that she presently only has pain to the suprapubic area when she voids. Patient without fever with stable vital signs at this time. Consulted with urologist Dr. Patricia Singer at [facility] who was able to pull up patient's CT scan and review it as well as her diagnostic test results. He does not feel that patient has a current stone but suspects that either the report is an overread or that pt recently passed a stone. Recommends treating for UTI at this time as an outpt and giving patient strict precautions to return immediately for any worsening symptoms or fever over 101. 03/02/19 15:09 Discussed plan of care with patient and treatment options. Patient is agreeable with outpatient treatment for UTI and plan for outpatient follow-up with urology. Discussed worsening symptoms that patient should return immediately for such as worsening pain, fever, vomiting or any new concerning symptoms. - Vital Signs Vital signs: Temp Pulse Resp BP Pulse Ox 97.8 F 74 16 125/64 100 03/02/19 14:35 03/02/19 14:35 03/02/19 14:35 03/02/19 14:35 03/02/19 14:35 - Laboratory Result Diagrams: 03/02/19 12:48 03/02/19 12:48 Laboratory results interpreted by me: 03/02/19 03/02/19 03/02/19 12:48 12:48 12:48 WBC 13.1 H RBC 5.57 H MCV 78 L MCH 25.2 L RDW 14.1 H Lymph % (Auto) 8.7 L Absolute Neuts (auto) 10.9 H Seg Neutrophils % 83.4 H Glucose 311 H Urine Protein 100 H Urine Glucose (UA) >=500 H Urine Blood MODERATE H Ur Leukocyte Esterase LARGE H 03/02/19 14:57 Labs- Entire Visit 03/02/19 03/02/19 03/02/19 12:48 12:48 12:48 WBC 13.1 H RBC 5.57 H Hgb 14.0 Hct 43.1 MCV 78 L MCH 25.2 L MCHC 32.5 RDW 14.1 H Plt Count 244 Lymph % (Auto) 8.7 L [place] % (Auto) 6.3 Eos % (Auto) 1.2 Baso % (Auto) 0.4 Absolute Neuts (auto) 10.9 H Absolute Lymphs (auto) 1.1 Absolute Monos (auto) 0.8 Absolute Eos (auto) 0.2 Absolute Basos (auto) 0.1 Seg Neutrophils % 83.4 H Sodium 137.2 Potassium 3.7 Chloride 100 Carbon Dioxide 26 Anion Gap 11 BUN 14 Creatinine 0.87 Est GFR ( Amer) > 60 Est GFR (MDRD) Non-Af > 60 Glucose 311 H Calcium 9.5 Total Bilirubin 0.6 Direct Bilirubin 0.1 Neonat Total Bilirubin Not Reportable Neonat Direct Bilirubin Not Reportable Neonat Indirect Bili Not Reportable AST 16 ALT 17 Alkaline Phosphatase 97 Total Protein 7.3 Albumin 4.3 Urine Color YELLOW Urine Appearance CLOUDY Urine pH 6.0 Ur Specific [place] 1.020 Urine Protein 100 H Urine Glucose (UA) >=500 H Urine Ketones NEGATIVE Urine Blood MODERATE H Urine Nitrite NEGATIVE Urine Bilirubin NEGATIVE Urine Urobilinogen NEGATIVE Ur Leukocyte Esterase LARGE H Urine WBC (Auto) >182 Urine RBC (Auto) 45 Urine WBC Clumps FEW Urine Ascorbic Acid NEGATIVE - Diagnostic Test Radiology reviewed: Reports reviewed Discharge - Discharge Clinical Impression: Renal calculus, left UTI (urinary tract infection) Qualifiers: Urinary tract infection type: site unspecified Hematuria presence: with hematuria Qualified Code(s): N39.0 - Urinary tract infection, site not specified Condition: Stable Disposition: HOME, SELF-CARE Instructions: Rocephin ([facility]), Urinary Anesthetic Agent ([facility]), Urinary Tract Infection ([facility]) Additional Instructions: Return immediately for any new or worsening symptoms: Fever, vomiting, worsening pain, or any concerning symptoms Followup with your primary care provider, call tomorrow to make a followup appointment Follow-up with a urologist, call today to make a follow-up appointment Prescriptions: Cefdinir 300 mg PO BID #20 capsule Phenazopyridine HCl [Pyridium 200 mg Tablet] 200 mg PO TID #15 tablet Forms: Smoking Cessation Education Referrals: [facility] [Primary Care Provider] - Follow up as needed [facility] [Provider Group] - Follow up in 3-5 days
== END 2019-03-02 15:27 | disposition home or self-care (01) ==
LOC: ER 12:13
DX: N39.0 Urinary tract infection, site not specified (principal); N20.0 Calculus of kidney; R10.9 Unspecified abdominal pain; R10.2 Pelvic and perineal pain; R11.2 Nausea with vomiting, unspecified; R10.30 Lower abdominal pain, unspecified; F17.200 Nicotine dependence, unspecified, uncomplicated; I10 Essential (primary) hypertension
CPT/HCPCS: 99284; 96365; 36415; 87086; 82962; 85025; 87088; 80053; 81001; 87186; 74176; S0119; J3490 ×2; J0696